=== PATIENT | female | born 1990 | race American Indian/Alaskan Native ===

== ENCOUNTER 2018-12-26 12:06 | Emergency (ER) | payer OTHER ==
[2018-12-26 12:48] VITALS: BP 125/75
--- NOTE | 2018-12-26 12:49 | Emergency Department Report ---
Blank Doc - Documentation Documentation: [place] with Rt foot pain and swelling after injury yesterday. Reports rolling ankle. Denies ankle pain TTP RT foot. No ankle swelling or tenderness XRAY foot PT stable
[2018-12-26] MEDS ORDERED: IBUPROFEN PO ONE (13:07)
--- NOTE | 2018-12-26 13:07 | Emergency Department Report ---
ED Back Pain/Injury HPI - General Chief Complaint: Extremity Injury, Lower Stated Complaint: RT FOOT INJURY Time Seen by Provider: 12/26/18 12:46 Source: patient Limitations: No Limitations - History of Present Illness Initial Comments: Patient comes to the emergency room after twisting her right foot yesterday. She is having difficulty ambulating because the foot hurts so badly. She denies any other injury. She rolled her foot. Patient has taken nothing at home to alleviate the pain. - Related Data Allergies Allergy/AdvReac Type Severity Reaction Status Date / Time No Known Allergies Allergy Unverified 12/26/18 12:08 ED Review of Systems ROS: Stated complaint: RT FOOT INJURY Other details as noted in HPI Comment: All other systems reviewed and negative ED Past Medical Hx - Past Medical History Medical history: no medical history ED Back Pain Physical Exam - Exam General: Vital signs noted. No distress. Alert and acting appropriately. WDWN patient in NAD VS per RN flow sheet Alert and oriented to person, place and time. S1-S2. No S3 or S4. No systolic or diastolic murmur. No JVD. No pitting edema. Lungs clear to auscultation bilaterally anteriorly and posteriorly. Abdomen soft nontender bowel sounds x4 dp and pt plus 2 bilateral; mild lat. mal edema. ambulation limited by pain Mood and affect appropriate. Back/Abdomen: No Abdominal Tenderness, No Perithoracic Tenderness, No Perilumbar Tenderness, No Sacroiliac Tenderness, No Flank Tenderness, No Straight Leg Raise Pain Neuro: Yes Normal Sensation, Yes Normal DTR's, No Motor Weakness, No Normal Gait (limited with pain) ED Course Vital Signs 12/26/18 12:45 Temperature 98.1 F Pulse Rate 82 Respiratory 16 Rate Blood Pressure 125/75 O2 Sat by Pulse 100 Oximetry Ed Back Pain Tests - Tests Tests: Normal X Rays ED Medical Decision Making - Radiology Data Radiology results: report reviewed, image reviewed - Medical Decision Making no fx neurovasc intact per PE RICE therapy nolan/crutches for comfort dc home with dc plan of care and follow up with Dr Milton next week Vital Signs 12/26/18 12:45 Temperature 98.1 F Pulse Rate 82 Respiratory 16 Rate Blood Pressure 125/75 O2 Sat by Pulse 100 Oximetry - Differential Diagnosis ro fx v sprain Critical care attestation.: If time is entered above; I have spent that time in minutes in the direct care of this critically ill patient, excluding procedure time. ED Disposition Clinical Impression: Ankle sprain, Arthritis, Bone spur Disposition: TO HOME OR SELFCARE Is pt being admited?: No Does the pt Need Aspirin: No Condition: Stable Instructions: Ankle Sprain (ED) Additional Instructions: REST ICE ELEVATE NOLAN/CRUTCHES FOR COMFORT FOR 48 [address]RS FOLLOW UP WITH DR MILTON NEXT WEEK FOR RECHECK MOTRIN AND OR TYLENOL FOR PAIN . Referrals: ANGEL MILTON MD [Staff Physician] - 3-5 Days Time of Disposition: 13:36
--- NOTE | 2018-12-26 13:33 | XRay Report ---
Right foot, 3 views INDICATION: Acute right foot pain and injury, swelling. COMPARISON: None. IMPRESSION: No acute osseous or soft tissue abnormality. No significant DJD. Tiny plantar spur is noted. Signer Name: Delfino Franco Jr, MD Signed: 12/26/2018 1:29 PM Workstation Name: [id number]
== END 2018-12-26 14:44 | disposition home or self-care (01) ==
LOC: ED 12:06
DX: S93.401A Sprain of unspecified ligament of right ankle, initial encounter (principal); M19.071 Primary osteoarthritis, right ankle and foot; M77.9 Enthesopathy, unspecified; X50.9XXA Other and unspecified overexertion or strenuous movements or postures, initial encounter; Y93.89 Activity, other specified; Y92.89 Other specified places as the place of occurrence of the external cause; Y99.8 Other external cause status
CPT/HCPCS: 99283

== ENCOUNTER 2019-02-18 17:33 | Emergency (ER) | payer SELFPAY ==
[2019-02-18 18:34] VITALS: BP 129/87
--- NOTE | 2019-02-18 18:35 | Event Note ---
ED Screening Note Date of service: 02/18/19 Time: 18:32 ED Screening Note: 29 y o female presents with productive cough x 2-3 days This initial assessment/diagnostic orders/clinical plan/treatment(s) is/are subject to change based on patients health status, clinical progression and re-assessment by fellow clinical providers in the ED. Further treatment and workup at subsequent clinical providers discretion. Patient/guardian urged not to elope from the ED as their condition may be serious if not clinically assessed and managed. Initial orders include: cxr
--- NOTE | 2019-02-18 19:26 | XRay Report ---
CHEST 2 VIEWS INDICATION / CLINICAL INFORMATION: SOB AND COUGH. COMPARISON: None available. FINDINGS: SUPPORT DEVICES: None. HEART / MEDIASTINUM: No significant abnormality. LUNGS / PLEURA: No significant pulmonary or pleural abnormality. No pneumothorax. ADDITIONAL FINDINGS: No significant additional findings. IMPRESSION: 1. No acute findings. Signer Name: Travis Dickerson MD Signed: 02/18/2019 7:21 PM Workstation Name: [id number]
[2019-02-18] MEDS ORDERED: IBUPROFEN PO ONE (21:57)
--- NOTE | 2019-02-18 22:01 | Emergency Department Report ---
- General Chief Complaint: Headache Stated Complaint: BAD COLD/HEADACHE Time Seen by Provider: 02/18/19 18:31 Source: patient Mode of arrival: Ambulatory Limitations: No Limitations - History of Present Illness Initial Comments: 29 year old female presents to the emergency room stating she has having a headache and Saturday with vomiting yesterday and pain in the left. Patient d enies any fever. She reports a cough headache. Last dose of pain medicine was last night. She reports pain is improved in her left eye. Headaches located in the frontal aspect. She has had no vomiting today. Does not have a primary care provider no past medical history takes no medications on a daily basis MD Complaint: cough, nasal congestion Onset/Timin -: days(s) Severity scale (0 -10): 9 Quality: sharp Consistency: intermittent Improves With: nothing Worsens With: nothing Associated Symptoms: nasal congestion, cough. denies: fever, chills, myalgias, diaphoresis, sore throat, shortness of breath, abdominal pain, rash Treatments Prior to Arrival: none - Related Data Previous Rx's Medication Instructions Recorded Last Taken Type Ibuprofen [Motrin 600 MG tab] 600 mg PO Q8H PRN #21 tablet 02/18/19 Unknown Rx Allergies Allergy/AdvReac Type Severity Reaction Status Date / Time No Known Allergies Allergy Verified 02/18/19 17:37 ED Review of Systems ROS: Stated complaint: BAD COLD/HEADACHE Other details as noted in HPI Comment: All other systems reviewed and negative Constitutional: denies: chills, fever Eyes: denies: eye pain, eye discharge, vision change ENT: denies: ear pain, throat pain Respiratory: denies: cough, shortness of breath, wheezing Cardiovascular: denies: chest pain, palpitations Endocrine: no symptoms reported Gastrointestinal: denies: abdominal pain, nausea, diarrhea Genitourinary: denies: urgency, dysuria, discharge Musculoskeletal: denies: back pain, joint swelling, arthralgia Skin: denies: rash, lesions Neurological: denies: headache, weakness, paresthesias Psychiatric: denies: anxiety, depression Hematological/Lymphatic: denies: easy bleeding, easy bruising ED Past Medical Hx - Past Medical History Previous Medical History?: No - Surgical History Past Surgical History?: No - Social History Smoking Status: Never Smoker Substance Use Type: None - Medications Home Medications: Home Medications Medication Instructions Recorded Confirmed Last Taken Type Ibuprofen [Motrin 600 MG tab] 600 mg PO Q8H PRN #21 tablet 02/18/19 Unknown Rx ED Physical Exam - General Limitations: No Limitations General appearance: alert, in no apparent distress - Head Head exam: Present: atraumatic, normocephalic - Eye Eye exam: Present: normal appearance - ENT ENT exam: Present: mucous membranes moist - Neck Neck exam: Present: normal inspection - Respiratory Respiratory exam: Present: normal lung sounds bilaterally. Absent: respiratory distress - Cardiovascular Cardiovascular Exam: Present: regular rate, normal rhythm. Absent: systolic murmur, diastolic murmur, rubs, gallop - GI/Abdominal GI/Abdominal exam: Present: soft, normal bowel sounds - Extremities Exam Extremities exam: Present: normal inspection - Back Exam Back exam: Present: normal inspection - Neurological Exam Neurological exam: Present: alert, oriented X3 - Psychiatric Psychiatric exam: Present: normal affect, normal mood - Skin Skin exam: Present: warm, dry, intact, normal color. Absent: rash ED Course Vital Signs 02/18/19 18:31 Temperature 98.3 F Pulse Rate 69 Respiratory 18 Rate Blood Pressure 129/87 O2 Sat by Pulse 99 Oximetry ED Medical Decision Making - Radiology Data Radiology results: report reviewed Patient: VANESSA GREENBERG MR#: [id number] : 1990 Acct:[id number] Age/Sex: 29 / F ADM Date: 02/18/19 Loc: ED Attending Dr: Ordering Physician: TABITHA WOODRUFF Date of Service: 02/18/19 Procedure(s): XR chest routine 2V Accession Number(s): [id number] cc: TABITHA WOODRUFF Fluoro Time In Minutes: CHEST 2 VIEWS INDICATION / CLINICAL INFORMATION: SOB AND COUGH. COMPARISON: None available. FINDINGS: SUPPORT DEVICES: None. HEART / MEDIASTINUM: No significant abnormality. LUNGS / PLEURA: No significant pulmonary or pleural abnormality. No pneumothorax. ADDITIONAL FINDINGS: No significant additional findings. IMPRESSION: 1. No acute findings. Signer Name: Travis Dickerson MD Signed: 02/18/2019 7:21 PM Workstation Name: [id number] Transcribed By: ADILENE Dictated By: Travis Dickerson MD Electronically Authenticated By: Travis Dickerson MD Signed Date/Time: 02/18/191920 DD/ 20 TD/TT: - Medical Decision Making 29 year old female presents to the emergency room stating she has having a headache and Saturday with vomiting yesterday and pain in the left. Patient denies any fever. She reports a cough headache. Last dose of pain medicine was last night. She reports pain is improved in her left eye. Headaches located in the frontal aspect. She has had no vomiting today. Does not have a primary care provider no past medical history takes no medications on a daily basis. This x-rays shows normal examination. Patient will be given ibuprofen to follow up with the primary care provider. She can continue taking [id number] cough medication and cold medication Critical care attestation.: If time is entered above; I have spent that time in minutes in the direct care of this critically ill patient, excluding procedure time. ED Disposition Clinical Impression: Viral syndrome Disposition: DC-01 TO HOME OR SELFCARE Is pt being admited?: No Does the pt Need Aspirin: No Condition: Stable Instructions: Viral Syndrome (ED) Additional Instructions: Take ibuprofen as needed for pain. Continue with [id number] cold medications. Follow up with her primary care provider if his symptoms persist or gets worse. Chest x-ray was negative for any acute findings. Prescriptions: Ibuprofen [Motrin 600 MG tab] 600 mg PO Q8H PRN #21 tablet PRN Reason: Pain , Severe (7-10) Referrals: JAZMIN NELSON MD [Primary Care Provider] - 3-5 Days Forms: Work/School Release Form(ED)
== END 2019-02-18 22:29 | disposition home or self-care (01) ==
LOC: ED 17:33
DX: B34.9 Viral infection, unspecified (principal)
CPT/HCPCS: 71046

== ENCOUNTER 2021-05-02 12:57 | Emergency (ER) | payer MEDICAID ==
[2021-05-02 16:00] VITALS: BP 126/73
--- NOTE | 2021-05-02 16:04 | Event Note ---
ED Screening Note ED Screening Note: 31 YO COMES TO ER WITH N/V LMP END OF SEPT SEX. ACTIVE NOT ON BC ELECTIVE AB 3 NO VAG BLEEDING OR DC PMH NONE PSH NONE RX NONE CIG SMOKER This initial assessment/diagnostic orders/clinical plan/treatment(s) is/are subject to change based on patients health status, clinical progression and re-assessment by fellow clinical providers in the ED. Further treatment and workup at subsequent clinical providers discretion. Patient/guardian urged not to elope from the ED as their condition may be serious if not clinically assessed and managed. Initial orders include: RO PREG/UTI
[2021-05-02] MEDS ORDERED: ONDANSETRON 4 MG ODT TAB PO ONE (16:06)
[2021-05-02] MEDS ORDERED: ACETAMINOPHEN 325 MG TAB PO STA (16:24)
--- NOTE | 2021-05-02 16:24 | Emergency Department Report ---
ED General Adult HPI - General Chief complaint: Abdominal Pain Stated complaint: ABDONINAL/NAUSEA PUI?: No Time Seen by Provider: 05/02/21 16:11 Source: patient, RN notes reviewed Mode of arrival: Ambulatory Limitations: No Limitations - History of Present Illness Initial comments: The patient is a 31-year-old female. The patient is not sure if she is . Presuming she is not , she is 5, with a history of 3 abortions. She also has a history of marijuana use. The patient presents to the ER today with a complaint of abdominal cramping, nausea, vomiting, cough and "cold phlegm." The patient denies headache, neck pain, chest pain, shortness of breath. The patient denies dysuria. The patient states that she smokes minimal marijuana. The patient is currently drinking grape soda while I am examining her. She felt improved after Tylenol and Zofran. -: Gradual, days(s) Location: abdomen Radiation: non-radiation Quality: aching, other (Cramping) Consistency: now resolved Improves with: medication Worsens with: eating - Related Data Previous Rx's Medication Instructions Recorded Last Taken Type Doxylamine Succinate/Vit B6 1 each PO QHS PRN #30 tablet. 05/02/21 Unknown Rx [Emil Raza 10-10 mg Tablet] Patti Root [Patti] 250 mg PO QID PRN #30 capsule 05/02/21 Unknown Rx Potassium Chloride [K-Dur] 20 meq PO QDAY #14 tablet 05/02/21 Unknown Rx Vit-Fe Fumar-FA [ 1 tab PO QDAY #30 tablet 05/02/21 Unknown Rx Vitamin] cephALEXin [Keflex] 500 mg PO Q6HR #20 capsule 05/02/21 Unknown Rx Allergies Allergy/AdvReac Type Severity Reaction Status Date / Time No Known Allergies Allergy Verified 02/18/19 17:37 ED Review of Systems ROS: Stated complaint: ABDONINAL/NAUSEA Other details as noted in HPI Constitutional: denies: fever Eyes: denies: eye discharge ENT: denies: epistaxis Respiratory: denies: cough Cardiovascular: denies: chest pain Gastrointestinal: abdominal pain, nausea, vomiting Genitourinary: denies: dysuria Neurological: denies: weakness Hematological/Lymphatic: denies: easy bleeding ED Past Medical Hx - Past Medical History Previous Medical History?: Yes Hx Hypertension: Yes (during ) - Surgical History Additional Surgical History: abortions - Social History Smoking Status: Former Smoker Substance Use Type: None - Medications Home Medications: Home Medications Medication Instructions Recorded Confirmed Last Taken Type Doxylamine Succinate/Vit B6 1 each PO QHS PRN #30 tablet. 05/02/21 Unknown Rx [Diclegis Dr 10-10 mg Tablet] Patti Root [Patti] 250 mg PO QID PRN #30 capsule 05/02/21 Unknown Rx Potassium Chloride [K-Dur] 20 meq PO QDAY #14 tablet 05/02/21 Unknown Rx Vit-Fe Fumar-FA [ 1 tab PO QDAY #30 tablet 05/02/21 Unknown Rx Vitamin] cephALEXin [Keflex] 500 mg PO Q6HR #20 capsule 05/02/21 Unknown Rx ED Physical Exam - General Limitations: No Limitations, Other (During the examination, odor and sense of marijuana strongly appreciated) General appearance: alert, in no apparent distress - Head Head exam: Present: atraumatic, normocephalic - Eye Eye exam: Present: normal appearance, EOMI. Absent: nystagmus - ENT ENT exam: Present: normal exam, normal orophraynx, mucous membranes moist, normal external ear exam - Neck Neck exam: Present: normal inspection, full ROM. Absent: tenderness, meningismus - Respiratory Respiratory exam: Present: normal lung sounds bilaterally. Absent: respiratory distress, wheezes, rales, rhonchi, stridor, decreased breath sounds - Cardiovascular Cardiovascular Exam: Present: regular rate, normal rhythm, normal heart sounds. Absent: bradycardia, tachycardia, irregular rhythm, systolic murmur, diastolic murmur, rubs, gallop - GI/Abdominal GI/Abdominal exam: Present: soft. Absent: distended, tenderness, guarding, rebound, rigid, pulsatile mass - Extremities Exam Extremities exam: Present: normal inspection, full ROM, other (2+ pulses noted in the bilateral upper and lower extremities. There is no palpable cord. negative Homans sign. Muscular compartments are soft. The pelvis is stable.). Absent: pedal edema, calf tenderness - Back Exam Back exam: Present: normal inspection, full ROM. Absent: tenderness, CVA tenderness (R), CVA tenderness (L), paraspinal tenderness, vertebral tenderness - Neurological Exam Neurological exam: Present: alert, oriented X3, normal gait, other (No facial droop. Tongue midline. Extraocular movements intact bilaterally. Facial sensation intact to light touch in V1, V2, V3 distribution bilaterally. 5 and a 5 strength in 4 extremities. Sensation intact to light touch in 4 extremities.). Absent: motor sensory deficit - Psychiatric Psychiatric exam: Present: normal affect, normal mood - Skin Skin exam: Present: warm, dry, intact, normal color. Absent: rash ED Course Vital Signs 05/02/21 05/02/21 15:59 16:32 Temperature 98.8 F Pulse Rate 90 Respiratory 16 16 Rate Blood Pressure 126/73 [Right] O2 Sat by Pulse 97 Oximetry - Reevaluation(s) Reevaluation #1: 05/02/21 18:11 differential diagnosis, including but not limited to: Nausea and vomiting of , bacteriuria, , marijuana consumption, electrolyte d erangement Assessment and plan: 31-year-old female with a complaint of abdominal pain, nausea and vomiting, without irritative or obstructive urinary symptoms. During the history and physical examination, odor of marijuana is very strongly appreciated. She is clinically sober at this time belly soft and benign, without rebound, guarding or peritoneal signs. She walks with a steady gait, and has a GCS of 15. Urine sample while contaminated, demonstrates bacteriuria, as well as evidence of positive urine test. Laboratory studies ordered and pending, ultrasound ordered, reassess. Patient counseled to discontinue marijuana consumption 05/02/21 20:47 Patient reexamined. No active vomiting. Leukocytosis is likely secondary to physiology of , may be a stress reaction secondary to nausea and vomiting of . Mildly hypokalemic. Potassium repleted. IV fluids ordered. Ultrasound confirms intrauterine . Patient also found to have bacteriuria The patient is clinically sober at this time. Discharged with appropriate antibiotics, Keflex, Diclegis, patti, vitamins, potassium supplementation, instructions to discontinue marijuana consumption. ED Medical Decision Making - Lab Data Result diagrams: 05/02/21 17:56 05/02/21 17:56 Vital Signs 05/02/21 05/02/21 15:59 16:32 Temperature 98.8 F Pulse Rate 90 Respiratory 16 16 Rate Blood Pressure 126/73 [Right] O2 Sat by Pulse 97 Oximetry Lab Results 05/02/21 05/02/21 Range/Units Unknown Unknown Urine Color Patricia (Yellow) Urine Turbidity Cloudy (Clear) Urine pH 6.0 (5.0-7.0) Ur Specific [place] 1.031 H (1.003-1.030) Urine Protein >500 (Negative) mg/dL Urine Glucose (UA) Neg (Negative) mg/dL Urine Ketones 80 (Negative) mg/dL Urine Blood Neg (Negative) Urine Nitrite Neg (Negative) Urine Bilirubin Neg (Negative) Urine Urobilinogen 4.0 (<2.0) mg/dL Ur Leukocyte Esterase Lg (Negative) Urine WBC (Auto) 44.0 H (0.0-6.0) /HPF Urine RBC (Auto) 18.0 (0.0-6.0) /HPF U Epithel Cells (Auto) 46.0 H (0-13.0) /HPF Urine Bacteria (Auto) 2+ (Negative) /HPF Urine Mucus 3+ /HPF Urine HCG, Qual Positive A (Negative) Urine Opiates Screen Negative Urine Methadone Screen Negative Ur Barbiturates Screen Negative Ur Phencyclidine Scrn Negative Ur Amphetamines Screen Negative U Benzodiazepines Scrn Negative Urine Cocaine Screen Negative U Marijuana (THC) Screen Positive Drugs of Abuse Note Disclamer Lab Results 05/02/21 05/02/21 05/02/21 Range/Units 17:56 17:56 17:56 WBC 17.3 H (4.5-11.0) K/mm3 RBC 4.35 (3.65-5.03) M/mm3 Hgb 14.3 (10.1-14.3) gm/dl Hct 42.4 (30.3-42.9) % MCV 98 H (79-97) fl MCH 33 H (28-32) pg MCHC 34 (30-34) % RDW 14.0 (13.2-15.2) % Plt Count 252 (140-440) K/mm3 Sodium 134 L (137-145) mmol/L Potassium 2.9 L* (3.6-5.0) mmol/L Chloride 95.5 L (98-107) mmol/L Carbon Dioxide 22 (22-30) mmol/L Anion Gap 19 mmol/L BUN 13 (7-17) mg/dL Creatinine 0.5 L (0.6-1.2) mg/dL Estimated GFR > 60 ml/min BUN/Creatinine Ratio 26 % Glucose 148 H (65-100) mg/dL Calcium 9.5 (8.4-10.2) mg/dL Magnesium (1.7-2.3) mg/dL HCG, Quant 20625 H (0-4) mIU/mL Urine Color (Yellow) Urine Turbidity (Clear) Urine pH (5.0-7.0) Ur Specific [place] (1.003-1.030) Urine Protein (Negative) mg/dL Urine Glucose (UA) (Negative) mg/dL Urine Ketones (Negative) mg/dL Urine Blood (Negative) Urine Nitrite (Negative) Urine Bilirubin (Negative) Urine Urobilinogen (<2.0) mg/dL Ur Leukocyte Esterase (Negative) Urine WBC (Auto) (0.0-6.0) /HPF Urine RBC (Auto) (0.0-6.0) /HPF U Epithel Cells (Auto) (0-13.0) /HPF Urine Bacteria (Auto) (Negative) /HPF Urine Mucus /HPF Urine HCG, Qual (Negative) Urine Opiates Screen Urine Methadone Screen Ur Barbiturates Screen Ur Phencyclidine Scrn Ur Amphetamines Screen U Benzodiazepines Scrn Urine Cocaine Screen U Marijuana (THC) Screen Drugs of Abuse Note Blood Type Antibody Screen 05/02/21 05/02/21 05/02/21 Range/Units 18:00 19:04 Unknown WBC (4.5-11.0) K/mm3 RBC (3.65-5.03) M/mm3 Hgb (10.1-14.3) gm/dl Hct (30.3-42.9) % MCV (79-97) fl MCH (28-32) pg MCHC (30-34) % RDW (13.2-15.2) % Plt Count (140-440) K/mm3 Sodium (137-145) mmol/L Potassium (3.6-5.0) mmol/L Chloride (98-107) mmol/L Carbon Dioxide (22-30) mmol/L Anion Gap mmol/L BUN (7-17) mg/dL Creatinine (0.6-1.2) mg/dL Estimated GFR ml/min BUN/Creatinine Ratio % Glucose (65-100) mg/dL Calcium (8.4-10.2) mg/dL Magnesium 1.90 (1.7-2.3) mg/dL HCG, Quant (0-4) mIU/mL Urine Color Patricia (Yellow) Urine Turbidity Cloudy (Clear) Urine pH 6.0 (5.0-7.0) Ur Specific [place] 1.031 H (1.003-1.030) Urine Protein >500 (Negative) mg/dL Urine Glucose (UA) Neg (Negative) mg/dL Urine Ketones 80 (Negative) mg/dL Urine Blood Neg (Negative) Urine Nitrite Neg (Negative) Urine Bilirubin Neg (Negative) Urine Urobilinogen 4.0 (<2.0) mg/dL Ur Leukocyte Esterase Lg (Negative) Urine WBC (Auto) 44.0 H (0.0-6.0) /HPF Urine RBC (Auto) 18.0 (0.0-6.0) /HPF U Epithel Cells (Auto) 46.0 H (0-13.0) /HPF Urine Bacteria (Auto) 2+ (Negative) /HPF Urine Mucus 3+ /HPF Urine HCG, Qual Positive A (Negative) Urine Opiates Screen Urine Methadone Screen Ur Barbiturates Screen Ur Phencyclidine Scrn Ur Amphetamines Screen U Benzodiazepines Scrn Urine Cocaine Screen U Marijuana (THC) Screen Drugs of Abuse Note Blood Type AB POSITIVE Antibody Screen Negative 05/02/21 Range/Units Unknown WBC (4.5-11.0) K/mm3 RBC (3.65-5.03) M/mm3 Hgb (10.1-14.3) gm/dl Hct (30.3-42.9) % MCV (79-97) fl MCH (28-32) pg MCHC (30-34) % RDW (13.2-15.2) % Plt Count (140-440) K/mm3 Sodium (137-145) mmol/L Potassium (3.6-5.0) mmol/L Chloride (98-107) mmol/L Carbon Dioxide (22-30) mmol/L Anion Gap mmol/L BUN (7-17) mg/dL Creatinine (0.6-1.2) mg/dL Estimated GFR ml/min BUN/Creatinine Ratio % Glucose (65-100) mg/dL Calcium (8.4-10.2) mg/dL Magnesium (1.7-2.3) mg/dL HCG, Quant (0-4) mIU/mL Urine Color (Yellow) Urine Turbidity (Clear) Urine pH (5.0-7.0) Ur Specific [place] (1.003-1.030) Urine Protein (Negative) mg/dL Urine Glucose (UA) (Negative) mg/dL Urine Ketones (Negative) mg/dL Urine Blood (Negative) Urine Nitrite (Negative) Urine Bilirubin (Negative) Urine Urobilinogen (<2.0) mg/dL Ur Leukocyte Esterase (Negative) Urine WBC (Auto) (0.0-6.0) /HPF Urine RBC (Auto) (0.0-6.0) /HPF U Epithel Cells (Auto) (0-13.0) /HPF Urine Bacteria (Auto) (Negative) /HPF Urine Mucus /HPF Urine HCG, Qual (Negative) Urine Opiates Screen Negative Urine Methadone Screen Negative Ur Barbiturates Screen Negative Ur Phencyclidine Scrn Negative Ur Amphetamines Screen Negative U Benzodiazepines Scrn Negative Urine Cocaine Screen Negative U Marijuana (THC) Screen Positive Drugs of Abuse Note Disclamer Blood Type Antibody Screen - Radiology Data Radiology results: pending, report reviewed, image reviewed [facility] OBSTETRIC ULTRASOUND ULTRASOUND OB TRANSVAGINAL HISTORY: Pelvic pain during , nausea and vomiting COMPARISON: None. TECHNIQUE: Routine transabdominal and transvaginal OB ultrasound performed. FINDINGS: Uterus: Mildly enlarged measuring 9.3 x 5.8 x 5.7 cm. Gestational Sac: Well-defined oval shape and intrauterine in location. Yolk Sac: Normal in appearance. Fetus/Embryo: [place]-rump length of 0.15 cm, corresponding to an estimated gestational age of 7 weeks 5 days. Embryonic/ anatomy is too small for evaluation. Embryonic/ cardiac activity: 160bpm Placenta: Too small for evaluation. Amniotic fluid volume: Subjectively appropriate for gestational age. Ovaries: The right ovary is normal in size and appearance with normal blood flow, measuring 3.1 x 1.6 x 1.8 cm. The left ovary is normal in size and appearance with normal blood flow, measuring 3.0 x 1.7 x 2.4 cm. Additional findings: None. IMPRESSION Early live intrauterine . No acute abnormality is appreciated. Signer Name: Delfino Franco Jr, MD Signed: 05/02/2021 6:11 PM Workstation Name: [id number] Critical care attestation.: If time is entered above; I have spent that time in minutes in the direct care of this critically ill patient, excluding procedure time. ED Disposition Clinical Impression: , Nausea and vomiting, Bacteriuria, Marijuana use, Hypokalemia Disposition: 01 HOME / SELF CARE / HOMELESS Is pt being admited?: No Does the pt Need Aspirin: No Condition: Good Instructions: Abdominal Pain (ED), Nausea, Adult, Marijuana Use During and Additional Instructions: Recommend the patient discontinue consumption of marijuana. Do not consume Motrin, ibuprofen, Naprosyn, Aleve. Avoid consumption of heavy and spicy foods. Advance diet as tolerated. Patient may take [id number] Tylenol/acetaminophen as needed for physical pain. Take Keflex as directed for bacteria in the urine. Take vitamins on a daily basis. Take potassium supplementation as directed. Take the Diclegis and patti tablets as needed for nausea and vomiting. Follow-up as soon as possible with an outpatient [facility] doctor to initiate outpatient care. Please return to the emergency room right away with new pain, worsened pain, migration of pain, projectile vomiting, change in mental status, confusion, inability to tolerate liquid feeds, new, worsened or different symptoms not present on the initial emergency room evaluation. Referrals: [facility] [Provider Group] - 3-5 Days [facility] [Provider [facility]] - 3-5 Days [facility] [Provider Group] - 3-5 Days Forms: Work/School Release Form(ED)
[2021-05-02 17:22] LABS: Bacteria,Urine 2+ /HPF (Negative); Bilirubin,Urine NEG (Negative); Blood,Urine NEG (Negative); Color,Urine Amber (Yellow); Mucus,Urine 3+ /HPF
[2021-05-02 17:23] LABS: Protein,Urine >500 mg/dL (Negative)
[2021-05-02 17:26] LABS: Amphetamine Screen,Urine Negative; Benzodiazepines Screen,Urine Negative; Cocaine Screen,Urine Negative; Methadone Screen,Urine Negative; Opiate Screen,Urine Negative
[2021-05-02 17:31] LABS: HCG Qualitative,Urine Positive (Negative)
[2021-05-02 17:40] LABS: Cannabinoid Screen,Urine Positive
[2021-05-02 18:20] LABS: Hematocrit 42.4 % (30.3-42.9); Hemoglobin 14.3 gm/dl (10.1-14.3); Mean Corpuscular HGB Conc 34 % (30-34); Mean Corpuscular Volume 98 fl (79-97); Platelet Count 252 K/mm3 (140-440); Red Blood Count 4.35 M/mm3 (3.65-5.03)
[2021-05-02 18:39] LABS: Blood Urea Nitrogen 13 mg/dL (7-17); Calcium 9.5 mg/dL (8.4-10.2); Hemolysis Index 4
[2021-05-02 18:52] LABS: BUN/Creatinine Ratio 26
[2021-05-02] MEDS ORDERED: POTASSIUM CHLORIDE ER 20 MEQ TAB PO ONE (18:55)
--- NOTE | 2021-05-02 19:15 | Ultrasound Report ---
[facility] OBSTETRIC ULTRASOUND ULTRASOUND OB TRANSVAGINAL HISTORY: Pelvic pain during , nausea and vomiting COMPARISON: None. TECHNIQUE: Routine transabdominal and transvaginal OB ultrasound performed. FINDINGS: Uterus: Mildly enlarged measuring 9.3 x 5.8 x 5.7 cm. Gestational Sac: Well-defined oval shape and intrauterine in location. Yolk Sac: Normal in appearance. Fetus/Embryo: [place]-rump length of 0.15 cm, corresponding to an estimated gestational age of 7 weeks 5 days. Embryonic/ anatomy is too small for evaluation. Embryonic/ cardiac activity: 160bpm Placenta: Too small for evaluation. Amniotic fluid volume: Subjectively appropriate for gestational age. Ovaries: The right ovary is normal in size and appearance with normal blood flow, measuring 3.1 x 1. 6 x 1.8 cm. The left ovary is normal in size and appearance with normal blood flow, measuring 3.0 x 1.7 x 2.4 cm. Additional findings: None. IMPRESSION Early live intrauterine . No acute abnormality is appreciated. Signer Name: Delfino Franco Jr, MD Signed: 05/02/2021 7:11 PM Workstation Name: [id number]
[2021-05-02] MEDS ORDERED: POTASSIUM CHLORIDE 10 MEQ 10 MEQ/100 ML BAG IV SCH (19:30)
[2021-05-02] MEDS ORDERED: D5W/0.45% NACL 1,000 ML IV SCH (19:30)
== END 2021-05-02 21:49 | disposition home or self-care (01) ==
LOC: ED 12:57
DX: O21.9 Vomiting of pregnancy, unspecified (principal); R87.810 Cervical high risk human papillomavirus (HPV) DNA test positive; O26.891 Other specified pregnancy related conditions, first trimester; R05.9 Cough, unspecified; E87.6 Hypokalemia; F12.90 Cannabis use, unspecified, uncomplicated; Z3A.01 Less than 8 weeks gestation of pregnancy; Z87.891 Personal history of nicotine dependence
CPT/HCPCS: 36415; 76801; 76817; 80048; 80307; 81001; 81025; 83735; 84702; 85027; 86850; 86900; 86901; 87086; 96365; 99284; J3480; Q0162

== ENCOUNTER 2021-05-05 17:15 | Emergency (ER) | payer MEDICAID ==
[2021-05-05] MEDS ORDERED: METOCLOPRAMIDE 10 MG/2 ML INJ IV ONE (18:52)
[2021-05-05] MEDS ORDERED: diphenhydrAMINE 50 MG/ML VIAL IV ONE (18:52)
[2021-05-05] MEDS ORDERED: LACTATED RINGERS 1,000 ML IV ONE (18:52)
[2021-05-05 19:44] LABS: Basophils % (Auto) 0.2 % (0.0-1.8); Eosinophils % (Auto) 0.1 % (0.0-4.3); Hematocrit 46.3 % (30.3-42.9); Hemoglobin 15.1 gm/dl (10.1-14.3); Lymphocytes # (Auto) 1.5 K/mm3 (1.2-5.4); Lymphocytes % (Auto) 9.2 % (13.4-35.0); Mean Corpuscular HGB Conc 33 % (30-34); Mean Corpuscular Volume 99 fl (79-97); Monocytes # (Auto) 1.4 K/mm3 (0.0-0.8); Monocytes % (Auto) 8.7 % (0.0-7.3); Red Blood Count 4.69 M/mm3 (3.65-5.03); Red Cell Distribution Width 13.9 % (13.2-15.2)
[2021-05-05 19:48] LABS: Alanine Aminotransferase 14 units/L (7-56); Albumin 4.7 g/dL (3.9-5); Blood Urea Nitrogen 13 mg/dL (7-17); Hemolysis Index 3; Platelet Count 247 K/mm3 (140-440)
--- NOTE | 2021-05-05 19:57 | Emergency Department Report ---
ED General Adult HPI - General Chief complaint: Nausea/Vomiting/Diarrhea Stated complaint: VOMITING Time Seen by Provider: 05/05/21 18:48 Source: patient Mode of arrival: Ambulatory Limitations: No Limitations - History of Present Illness Initial comments: 31-year-old -[place] female patient presents with complaints of nausea and vomiting in . Patient seen here 05/02/2021 for the same. She denies any pelvic pain or vaginal bleeding today. Patient was diagnosed with a UTI and discharged home with Keflex and nausea medicine. She reports that she did not receive the nausea medicine from the pharmacy and has not been able to tolerate taking the prescribed Keflex for her UTI. She states history of hyperemesis gravidarum. Patient has also not followed up with her [facility]. No fever/chills/sweats, hematemesis/coffee-ground emesis, or stool changes per patient. - Related Data Previous Rx's Medication Instructions Recorded Last Taken Type Doxylamine Succinate/Vit B6 1 each PO QHS PRN #30 tablet. 05/02/21 Unknown Rx [Emil Raza 10-10 mg Tablet] Padmini Root [Padmini] 250 mg PO QID PRN #30 capsule 05/02/21 Unknown Rx Potassium Chloride [K-Dur] 20 meq PO QDAY #14 tablet 05/02/21 Unknown Rx Vit-Fe Fumar-FA [ 1 tab PO QDAY #30 tablet 05/02/21 Unknown Rx Vitamin] cephALEXin [Keflex] 500 mg PO Q6HR #20 capsule 05/02/21 Unknown Rx Metoclopramide [Reglan] 10 mg PO TID PRN #30 tab 05/05/21 Unknown Rx diphenhydrAMINE [Benadryl CAP] 25 mg PO Q8HR PRN #30 capsule 05/05/21 Unknown Rx Allergies Allergy/AdvReac Type Severity Reaction Status Date / Time No Known Allergies Allergy Verified 02/18/19 17:37 ED Review of Systems ROS: Stated complaint: VOMITING Other details as noted in HPI Constitutional: weakness. denies: chills, diaphoresis, fever, malaise Respiratory: denies: shortness of breath Cardiovascular: denies: chest pain Gastrointestinal: abdominal pain (Generalized), nausea, vomiting. denies: diarrhea, constipation, hematemesis Genitourinary: denies: frequency, hematuria, discharge, abnormal menses Skin: denies: change in color Neurological: denies: headache ED Past Medical Hx - Past Medical History Previous Medical History?: No Hx Hypertension: Yes (during ) - Surgical History Past Surgical History?: Yes Additional Surgical History: abortions - Social History Smoking Status: Former Smoker Substance Use Type: None - Medications Home Medications: Home Medications Medication Instructions Recorded Confirmed Last Taken Type Doxylamine Succinate/Vit B6 1 each PO QHS PRN #30 tablet.dr 05/02/21 Unknown Rx [Diclegis Dr 10-10 mg Tablet] Padmini Root [Padmini] 250 mg PO QID PRN #30 capsule 05/02/21 Unknown Rx Potassium Chloride [K-Dur] 20 meq PO QDAY #14 tablet 05/02/21 Unknown Rx Vit-Fe Fumar-FA [ 1 tab PO QDAY #30 tablet 05/02/21 Unknown Rx Vitamin] cephALEXin [Keflex] 500 mg PO Q6HR #20 capsule 05/02/21 Unknown Rx Metoclopramide [Reglan] 10 mg PO TID PRN #30 tab 05/05/21 Unknown Rx diphenhydrAMINE [Benadryl CAP] 25 mg PO Q8HR PRN #30 capsule 05/05/21 Unknown Rx ED Physical Exam - General Limitations: No Limitations General appearance: alert, in no apparent distress - Head Head exam: Present: atraumatic, normocephalic - Eye Eye exam: Present: normal appearance. Absent: scleral icterus - Respiratory Respiratory exam: Present: normal lung sounds bilaterally. Absent: respiratory distress - Cardiovascular Cardiovascular Exam: Present: regular rate, normal rhythm - GI/Abdominal GI/Abdominal exam: Present: soft, tenderness (Mild generalized), normal bowel sounds. Absent: distended, guarding, rebound, rigid - Back Exam Back exam: Absent: CVA tenderness (R), CVA tenderness (L) - Neurological Exam Neurological exam: Present: alert, oriented X3, normal gait - Psychiatric Psychiatric exam: Present: normal affect, normal mood - Skin Skin exam: Present: warm, dry, intact, normal color. Absent: rash ED Course Vital Signs 05/05/21 05/05/21 05/05/21 18:33 21:35 23:04 Temperature 97.9 F 98 F Pulse Rate 92 H 84 82 Respiratory 18 18 18 Rate Blood Pressure 95/63 144/74 129/74 [Right] O2 Sat by Pulse 98 100 100 Oximetry ED Medical Decision Making - Lab Data Result diagrams: 05/05/21 19:05/05/21 19: Lab Results 05/05/21 05/05/21 05/05/21 Range/Units 19:01 19: 19: WBC 15.9 H (4.5-11.0) K/mm3 RBC 4.69 (3.65-5.03) M/mm3 Hgb 15.1 H (10.1-14.3) gm/dl Hct 46.3 H (30.3-42.9) % MCV 99 H (79-97) fl MCH 32 (28-32) pg MCHC 33 (30-34) % RDW 13.9 (13.2-15.2) % Plt Count 247 (140-440) K/mm3 Lymph % (Auto) 9.2 L (13.4-35.0) % [place] % (Auto) 8.7 H (0.0-7.3) % Eos % (Auto) 0.1 (0.0-4.3) % Baso % (Auto) 0.2 (0.0-1.8) % Lymph # (Auto) 1.5 (1.2-5.4) K/mm3 [place] # (Auto) 1.4 H (0.0-0.8) K/mm3 Eos # (Auto) 0.0 (0.0-0.4) K/mm3 Baso # (Auto) 0.0 (0.0-0.1) K/mm3 Seg Neutrophils % 81.8 H (40.0-70.0) % Seg Neutrophils # 13.0 H (1.8-7.7) K/mm3 Sodium 136 L (137-145) mmol/L Potassium 2.8 L* (3.6-5.0) mmol/L Chloride 92.7 L (98-107) mmol/L Carbon Dioxide 22 (22-30) mmol/L Anion Gap 24 mmol/L BUN 13 (7-17) mg/dL Creatinine 0.5 L (0.6-1.2) mg/dL Estimated GFR > 60 ml/min BUN/Creatinine Ratio 26 % Glucose 139 H (65-100) mg/dL Calcium 10.0 (8.4-10.2) mg/dL Magnesium 1.90 (1.7-2.3) mg/dL Total Bilirubin 0.40 (0.1-1.2) mg/dL AST 15 (5-40) units/L ALT 14 (7-56) units/L Alkaline Phosphatase 82 (35-129) units/L Total Protein 8.9 H (6.3-8.2) g/dL Albumin 4.7 (3.9-5) g/dL Albumin/Globulin Ratio 1.1 % Urine Color (Yellow) Urine Turbidity (Clear) Urine pH (5.0-7.0) Ur Specific [place] (1.003-1.030) Urine Protein (Negative) mg/dL Urine Glucose (UA) (Negative) mg/dL Urine Ketones (Negative) mg/dL Urine Blood (Negative) Urine Nitrite (Negative) Urine Bilirubin (Negative) Urine Urobilinogen (<2.0) mg/dL Ur Leukocyte Esterase (Negative) Urine WBC (Auto) (0.0-6.0) /HPF Urine RBC (Auto) (0.0-6.0) /HPF U Epithel Cells (Auto) (0-13.0) /HPF Urine Mucus /HPF // Range/Units 20:26 WBC (4.5-11.0) K/mm3 RBC (3.65-5.03) M/mm3 Hgb (10.1-14.3) gm/dl Hct (30.3-42.9) % MCV (79-97) fl MCH (28-32) pg MCHC (30-34) % RDW (13.2-15.2) % Plt Count (140-440) K/mm3 Lymph % (Auto) (13.4-35.0) % [place] % (Auto) (0.0-7.3) % Eos % (Auto) (0.0-4.3) % Baso % (Auto) (0.0-1.8) % Lymph # (Auto) (1.2-5.4) K/mm3 [place] # (Auto) (0.0-0.8) K/mm3 Eos # (Auto) (0.0-0.4) K/mm3 Baso # (Auto) (0.0-0.1) K/mm3 Seg Neutrophils % (40.0-70.0) % Seg Neutrophils # (1.8-7.7) K/mm3 Sodium (137-145) mmol/L Potassium (3.6-5.0) mmol/L Chloride (98-107) mmol/L Carbon Dioxide (22-30) mmol/L Anion Gap mmol/L BUN (7-17) mg/dL Creatinine (0.6-1.2) mg/dL Estimated GFR ml/min BUN/Creatinine Ratio % Glucose (65-100) mg/dL Calcium (8.4-10.2) mg/dL Magnesium (1.7-2.3) mg/dL Total Bilirubin (0.1-1.2) mg/dL AST (5-40) units/L ALT (7-56) units/L Alkaline Phosphatase (35-129) units/L Total Protein (6.3-8.2) g/dL Albumin (3.9-5) g/dL Albumin/Globulin Ratio % Urine Color Patricia (Yellow) Urine Turbidity Cloudy (Clear) Urine pH 6.0 (5.0-7.0) Ur Specific [place] 1.024 (1.003-1.030) Urine Protein >500 (Negative) mg/dL Urine Glucose (UA) 50 (Negative) mg/dL Urine Ketones 80 (Negative) mg/dL Urine Blood Neg (Negative) Urine Nitrite Neg (Negative) Urine Bilirubin Neg (Negative) Urine Urobilinogen 2.0 (<2.0) mg/dL Ur Leukocyte Esterase Tr (Negative) Urine WBC (Auto) 6.0 (0.0-6.0) /HPF Urine RBC (Auto) 2.0 (0.0-6.0) /HPF U Epithel Cells (Auto) 10.0 (0-13.0) /HPF Urine Mucus 3+ /HPF - Medical Decision Making 31-year-old -[place] female patient presents with complaints of nausea and vomiting in . Patient seen here 05/02/2021 for the same. She denies any pelvic pain or vaginal bleeding today. Patient was diagnosed with a UTI and discharged home with Keflex and nausea medicine. She reports that she did not receive the nausea medicine from the pharmacy and has not been able to tolerate taking the prescribed Keflex for her UTI. She states history of hyperemesis gravidarum. Patient has also not followed up with her [facility]. No fever/chills/sweats, hematemesis/coffee-ground emesis, or stool changes per patient. Patient also reports she has not been taking the prescribed potassium due to vomiting Labs show potassium of 2.8 today previously 2.9 on last visit. Anion gap noted to be 24. UA is negative for UTI. Patient given 1 L of LR and 1 L of NS along with 10 mEq of IV potassium and 40 mEq p.o. potassium. She is tolerating fluids and foods p.o. patient to start potassium as prescribed on 05/02/2021. She states she is feeling well. Her vitals are normal and she is stable for discharge home. Discussed in detail signs and symptoms that should prompt immediate return to the ED with patient who verbalizes understanding. Patient again informed to follow-up with [facility] within 3 to 5 days and referrals were provided Critical care attestation.: If time is entered above; I have spent that time in minutes in the direct care of this critically ill patient, excluding procedure time. ED Disposition Clinical Impression: Nausea/vomiting in Disposition: 01 HOME / SELF CARE / HOMELESS Is pt being admited?: No Condition: Stable Instructions: Hyperemesis Gravidarum Prescriptions: diphenhydrAMINE [Benadryl CAP] 25 mg PO Q8HR PRN #30 capsule PRN Reason: Nausea Metoclopramide [Reglan] 10 mg PO TID PRN #30 tab PRN Reason: Nausea Referrals: [facility] [Provider Group] - 3-5 Days [facility] [Provider Group] - 3-5 Days [facility] [Provider Group] - 3-5 Days
[2021-05-05 20:13] LABS: BUN/Creatinine Ratio 26
[2021-05-05] MEDS ORDERED: POTASSIUM CHLORIDE ER 20 MEQ TAB PO ONE (20:25)
[2021-05-05] MEDS ORDERED: SODIUM CHLORIDE 0.9% 1000 ML 1,000 ML IV ONE (20:31)
[2021-05-05 20:50] LABS: Bilirubin,Urine NEG (Negative); Blood,Urine NEG (Negative); Color,Urine Amber (Yellow); Mucus,Urine 3+ /HPF
[2021-05-05 20:51] LABS: Protein,Urine >500 mg/dL (Negative)
[2021-05-05] MEDS ORDERED: POTASSIUM CHLORIDE 10 MEQ 10 MEQ/100 ML BAG IV ONE (20:59)
[2021-05-05] MEDS ORDERED: POTASSIUM CHLORIDE 10 MEQ 10 MEQ/100 ML BAG IV SCH (21:00)
[2021-05-05 23:05] VITALS: BP 129/74
== END 2021-05-05 23:06 | disposition home or self-care (01) ==
LOC: ED 17:15
DX: O20.9 Hemorrhage in early pregnancy, unspecified (principal); I10 Essential (primary) hypertension; Z87.891 Personal history of nicotine dependence; Z79.899 Other long term (current) drug therapy; Z3A.01 Less than 8 weeks gestation of pregnancy
CPT/HCPCS: 36415; 80053; 81001; 83735; 85025; 96361; 96374; 96375; 99283; J1200; J2765; J3480; J7030; J7120; J3490; Q0162

== ENCOUNTER 2021-05-10 18:23 | Emergency (ER) | payer MEDICAID ==
[2021-05-10 18:28] VITALS: BP 130/90
== END 2021-05-10 19:25 | disposition left against medical advice (07) ==
LOC: ED 18:23
DX: O21.9 Vomiting of pregnancy, unspecified (principal); Z3A.09 9 weeks gestation of pregnancy; Z53.21 Procedure and treatment not carried out due to patient leaving prior to being seen by health care provider